=== PATIENT | male | born 1960 | race Caucasian/White ===

== ENCOUNTER 2020-05-10 11:39 | Inpatient (IN) | payer BC, SELFPAY ==
[~2020-05-10] VITALS: Ht 172.7 cm; Wt 91.9 kg
--- NOTE | 2020-05-10 12:13 | NUR ---
PT AMB TO ED FOR FURTHER EVALUATION OF COUGH/COLD/FEVER SYMPTOMS; PT STS HAS HAD SYMPTOMS FOR APPROX 10 DAYS WITH A NEGATIVE COVID TEST LAST WEEK PT PRESENTS WITH LABORED BREATHING AND COARSE LUNG SOUNDS THROUGH OUT; PT SEEN BY PROVIDER, ORDERS RECD; IV ACCESS TO L AC INITIATED, LABS DRAWN/SENT INCL LACTIC AND BLOOD CULTURES; o2 SAT 68% RA, PT INITATED ON BIPAP AT 10/6 FIO2 100%; ADD'L COVID TESTING DONE; EKG COMPLETE; CONT TO MONITOR
--- NOTE | 2020-05-10 12:18 | NUR ---
PT MOVED TO BED 1. PLACED ON MONITOR. ASSUMED CARE. RT AT BEDSIDE FOR BIPAP. PT APPEARS RELAXED AT THIS TIME. TOLERATING BIPAP. EKG DONE. LABS SENT. ABG IN PROGRESS.
[2020-05-10 12:23] LABS: BASOPHIL % 0.3 % (0-2); PLATELET COUNT 152 x10^3mcL (130-400)
[2020-05-10 12:30] LABS: RED CELL DISTRIBUTION WIDTH 14.8 % (11.5-14.5)
--- NOTE | 2020-05-10 12:48 | NUR ---
PT CONT TO TOLERATE BIPAP WELL, WAITING ON FURTHER DISPO
--- NOTE | 2020-05-10 13:25 | NUR ---
PT REMAINS W/HOB ELEVATED, CONT TO WAIT ON ICU BED; KULDIP BIPAP WELL
[2020-05-10 13:39] LABS: CALCIUM 8.6 mg/dL (8.5-10.1); CARBON DIOXIDE 22.6 mmol/L (21-32); CHLORIDE SERUM 99 mmol/L (98-107); CREATININE SERUM 1.2 mg/dL (0.7-1.3); GFR1 > 60 mL/min; GLUCOSE SERUM 322 mg/dL (74-106); POTASSIUM SERUM 3.8 mmol/L (3.5-5.1); SODIUM SERUM 137 mmol/L (136-145)
[2020-05-10 13:44] LABS: ALBUMIN 2.5 g/dL (3.4-5.0); ALKALINE PHOSPHATASE 116 U/L (46-116); ALT/SGPT 62 U/L (16-63); AST/SGOT 74 U/L (15-37); BILIRUBIN TOTAL 1.12 mg/dL (0.20-1.00); LACTIC DEHYDROGENASE (LDH) 441 U/L (100-190); TOTAL PROTEIN, SERUM 7.4 g/dL (6.4-8.2)
[2020-05-10 14:13] LABS: C REACTIVE PROTEIN 20.5 mg/dL (<=0.9)
--- NOTE | 2020-05-10 14:35 | NUR ---
PT INSTRUCTED TO PRONE AT THIS TIME PER RT; CONT TO BIPAP; KULDIP PRONING WELL, FAMILY UPDATED AND PHONE WAS BROUGHT IN FOR PT; QUESTIONES ANSWERED; FAMILY STRONGLY ENCOURAGED TO SELF QUARENTINE AND GET RETESTED; FAMILY ALSO WAS GIVEN ADDITIONAL EDUCATION REGARDING COURSE OF ILLNESS AND TREATMENTS
[2020-05-10 14:58] LABS: MAGNESIUM 2.1 mg/dL (1.8-2.4); PHOSPHOROUS 2.7 mg/dL (2.5-4.9)
[2020-05-10 15:01] LABS: CHOLESTEROL/HDL RATIO 6.3
--- NOTE | 2020-05-10 15:20 | NUR ---
PT NOW SUPINE, KULDIP WELL, BIPAP REMAINS IN USE; WAITING ON BED ASSIGNMENT; ADDITIONAL TESTING ORDERED
--- NOTE | 2020-05-10 17:16 | NUR ---
ULTRASOUND IN PROGRESS; PT RESTING WELL, CONT TO KULDIP BIPAP WELL;WAITING ON BED ASSIGNMENT
--- NOTE | 2020-05-10 17:38 | NUR ---
ULTRA SOUND COMPLETED, PT RESTING WELL, NO RESP DISTRESS, CONT TO KULDIP BIPAP
--- NOTE | 2020-05-10 20:11 | NUR ---
PT SIDE LYING, AND TOLERATING WELL. OXYGEN SATURATION 98%, RESPIRATIONS 33. PT BP AND HR WNL. PT ABLE TO SPEAK TO ME, AND WAS ABLE TO RPOVIDE URINE FOR CULTURE. PAGED RESIDENT, TO INQUIRE ABOUT MEDS SCHEULED FOR LATER THIS EVENING. WAITING FOR RETURN CALL.
[2020-05-10 20:24] LABS: UA SPECIFIC GRAVITY 1.025 (1.005-1.035); microscopic required? YES; urine erythrocyte NEGATIVE (NEGATIVE)
--- NOTE | 2020-05-10 20:34 | NUR ---
SPOKE WITH DR. RAY, PER MD, HOLD LANTUS THAT IS SCHEDULED BECUASE PT IS ON BIPAP AND NOT ABLE TO EAT. USE SLIDING SCALE FOR HUMILIN. DR. RAY ALSO REQUESTS TO ADD A SINGLE DOSE OF DECADRON, TONIGHT AT 2100.
[2020-05-10 20:39] LABS: AMPHETAMINE QUAL UR NONE DETECTED (See below)
--- NOTE | 2020-05-10 23:29 | NUR ---
PT IS LEFT SIDE LYING WITH EYES CLOSED. PT TOLERATING POSITION WELL. PT DENIES ANY PAIN AT THIS TIME. PT O2 SAT 94% RR 35. WILL CONTINUE TO MONITOR
--- NOTE | 2020-05-11 00:23 | NUR ---
PT TRANSFERRED TO ICU.
--- NOTE | 2020-05-11 00:40 | NUR ---
ADMITTED 58YR OLD MALE FROM ER VIA RNEY AWAKE ALERT AND ORIENTEDX4 W/ BIPAP AND TOLERATING WELL.COOPERATIVE FOLLOWS VERBAL COMMAND. RESPIRATION SLIGHTLY DYSPNIC AND TACHYPNIC.LUNGS DIMINISHED. NO ACUTE DISTRESS NOTED. MADE COMFORTABLE IN BED. WENT TO SLEEP AFTER.TEMP 99.
[2020-05-11 01:28] VITALS: BP 141/40
[2020-05-11 04:00] VITALS: BP 130/52
--- NOTE | 2020-05-11 05:00 | NUR ---
AWAKE AND NO URINE.ASKED PT TO VOID AND VOIDED 35OML DARK RUSS URINE.VSS.
--- NOTE | 2020-05-11 07:10 | NUR ---
ASSUMED CARE OF PATIENT, PT RESTING IN BED WITH EYES CLOSED EASILY AROUSABLE. ON BIPAP /, RESPIRATIONS EVEN AND UNLABORED. VS 80, 128/75 (92), 31, 93%. NO ACUTE DISTRESS NOTED, WILL CONTINUE TO MONITOR.
--- NOTE | 2020-05-11 07:20 | NUR ---
REPORT GIVEN TO ZAYNAB AND ALL QUESTIONS ANSWERED.
[2020-05-11 07:47] LABS: BASOPHIL % 0.2 % (0-2); PLATELET COUNT 156 x10^3mcL (130-400)
[2020-05-11 08:15] VITALS: BP 128/75
[2020-05-11 08:50] LABS: RED CELL DISTRIBUTION WIDTH 14.8 % (11.5-14.5)
[2020-05-11 09:12] LABS: CALCIUM 8.5 mg/dL (8.5-10.1); CREATININE SERUM 0.9 mg/dL (0.7-1.3); GFR1 > 60 mL/min; GLUCOSE SERUM 313 mg/dL (74-106); MAGNESIUM 2.1 mg/dL (1.8-2.4); PHOSPHOROUS 2.8 mg/dL (2.5-4.9)
[2020-05-11 09:44] LABS: CARBON DIOXIDE 22.7 mmol/L (21-32); CHLORIDE SERUM 105 mmol/L (98-107); POTASSIUM SERUM 4.5 mmol/L (3.5-5.1); SODIUM SERUM 141 mmol/L (136-145)
[2020-05-11 12:20] VITALS: BP 149/89
--- NOTE | 2020-05-11 14:54 | NUR ---
PATIENT ON OXIMIZER AT 12L AND PRONING AT THIS TIME. WILL MONITOR FOR PATIENT RESPONSE.
[2020-05-11 16:17] VITALS: BP 139/89
--- NOTE | 2020-05-11 18:15 | NUR ---
ONE UNIT CONVALESCENT PLASMA COMPLETE AT THIS TIME, NO TRANSFUSION REATION NOTED.
--- NOTE | 2020-05-11 19:04 | NUR ---
SBAR REPORT GIVEN TO ELPIDIO, ALL UPDATES PROVIDED.
[2020-05-11 19:30] VITALS: BP 133/67
--- NOTE | 2020-05-11 20:02 | NUR ---
PT GIVEN INCENTIVE SPIROMETER. EDUCATION PROVIDED, HANDOUT IN [place] PROVIDED. PT DEMONSTRATED APPROPRIATE USAGE OF DEVICE. PT NOTED TO HAVE DRY COUGH AFTER IS USE, NO SECRETIONS PRODUCED. INSTRUCTED PT TO REPEAT Q1-2H.
--- NOTE | 2020-05-11 20:02 | NUR ---
RECEIVED CALL FROM PT'S SON IJEOMA. UPDATED. WAS REQUESTED TO GIVEN PT'S PHONE FROM [employer] TO PT SO THAT FAMILY CAN TEXT HIM. PHONE GIVEN TO PT AND CHARGING.
--- NOTE | 2020-05-11 20:27 | NUR ---
PT SEEN BY DR WEBB. UPDATED. ORDERS RECEIVED TO DC AZITHROMYCIN, START REMDESIVIR AND PLASMA. SEE MAR FOR DETAILS.
--- NOTE | 2020-05-11 20:40 | NUR ---
FOUND PT ON 12 L/M OXYMIZER SPO2 92% LAYING ON HIS LEFT SIDE. EXPLAINED VERY THOROUGHLY IN AMHARIC THAT HE NEEDS TO PRONE MUCH POSSIBLE. ADVISED PT TO ALSO USE INCENTIVE SPIROMETER 10X AN HOUR WHEN HE IS SUPINE. PT STATED THAT HE UNDERSTOOD.
[2020-05-12] VITALS (13 sets, daily range): BP systolic 129–157; BP diastolic 68–89
[2020-05-12 06:09] LABS: PLATELET COUNT 166 x10^3mcL (130-400)
[2020-05-12 06:10] LABS: RED CELL DISTRIBUTION WIDTH 14.8 % (11.5-14.5)
[2020-05-12 06:11] LABS: BASOPHIL % 0 % (0-2)
[2020-05-12 06:39] LABS: C REACTIVE PROTEIN 7.6 mg/dL (<=0.9); CALCIUM 8.2 mg/dL (8.5-10.1); CARBON DIOXIDE 28.2 mmol/L (21-32); CHLORIDE SERUM 106 mmol/L (98-107); CREATININE SERUM 0.8 mg/dL (0.7-1.3); GFR1 > 60 mL/min; GLUCOSE SERUM 248 mg/dL (74-106); MAGNESIUM 2.1 mg/dL (1.8-2.4); PHOSPHOROUS 2.5 mg/dL (2.5-4.9); POTASSIUM SERUM 3.8 mmol/L (3.5-5.1); SODIUM SERUM 141 mmol/L (136-145)
--- NOTE | 2020-05-12 07:15 | NUR ---
ROUNDING WITH OUTGOING RN REPORT PT IN A DROPLET ISOLATION FOR POSTIVE COVID 19 PNA , IV OUT AND RT AC ANGIO # 18 WITH SLIGHT HEMATOMA ON ABOVE AND ASPIRATED BLOOD RETURN BUT THEN STARTED ANOTHER IV LIFELINE VIA LEFT HAND ANGIO # 20 AND IVF NS 0.9 % AT TKO RATE , PT FALL BACK TO SLEEP AFTER TEAC PT ON HOW TO USE INCENTIVE SPIROMETER AND PRONING POSITION .
[2020-05-12 09:37] LABS: BILIRUBIN DIRECT 0.43 mg/dL (0.0-0.2); BILIRUBIN TOTAL 0.9 mg/dL (0.20-1.00); TOTAL PROTEIN, SERUM 6.4 g/dL (6.4-8.2)
[2020-05-12 09:40] LABS: ALBUMIN 2.3 g/dL (3.4-5.0)
--- NOTE | 2020-05-12 11:00 | NUR ---
SPOKE TO PT SON ROGE AND UPDATED ABOUT PT CURRENT STATUS AND POSSIBLE DOWNGRADED TO ANOTHER COVID PENDING BED AVAILABLE .
--- NOTE | 2020-05-12 13:28 | NUR ---
FIRST LOADING DOSE OF REMDESIVIR ADMINISTERED AND EXPLAIN TO PT ABOUT PURPOSE AND EFFECT , PT ACKNOWLEDGED AND VERBALIZED UNDERSTANDING , MED INFO GIVEN TO PT .
--- NOTE | 2020-05-12 17:46 | NUR ---
RECEIVED SBAR REPORT FROM SIRISHA WHITAKER FROM ICU.
--- NOTE | 2020-05-12 17:46 | NUR ---
SBAR REPORTED TO SHERMAN OHUSE AND ACCEPTED , PT EATING DINNER AND TAKEN WELL , S/O AWARE OF PT BEING DOWNGRADE TO [facility] UNIT ROOM ASSIGN 221-B VIA WHEELCHAIR IN STABLE CONDITION .
--- NOTE | 2020-05-12 18:36 | NUR ---
1800: PATIENT ARRIVED TO ROOM 221B. PATIENT IS AAOX4, ABLE TO MAKE NEEDS KNOW, PATIENT IS ABLE TO SPEAK AND UNDERSTAND TAJIK. BUT PREFER TO SPEAK IN [place]. 02 SAT 88% ON 12L NC, SOB ON EXERTION NOTED. INCREASE 02 TO 15L OXYMIZER, O2 SAT 91%. BILAT UPPER LOBE COURSE RHONCHI AND DIMINISHED BBL. ENCOURAGE PATIENT TO USE IS AND PRONE. PER PATIENT, HE IS AWARE AND WILL DO IT LATER. BODY ASSESSMENT PERFOREMD, SKIN INTACT AND PATEN, DISCOLORATION TO BUE/BLE. DENIES DISTRESS OR PAIN AT THIS TIME. EXPLAINED PLAN OF CARE AND PATIENT VERNBALIZED UNDERSTANDING. ORIENT TO THE ROOM AND CALL LIGHT. NONSKID SOCKS ON, BED IN LOW AND LOCK POSITION. WILL CONT TO MONITOR. 1830: PATIENT IS RESTING IN BED QUEITLY. NO ADDITIONAL DISTRESS NOTED. 02 SAT 91% ON 15L OXYMIZER. WILL CONT TO MONITOR.
--- NOTE | 2020-05-12 19:50 | NUR ---
PT RECIEVED IN BED AWAKE, IN A PRONE POSITION. A/OX4 ABLE TO MAKE NEEDS KNWON, ABLE TO FOLLOW COMMANDS, SPEECH IS CLR. NO FERMIN C/O OR DIZZINESS. PT RESP IS SLIGHTLY LABORED, ON OXYMIZER 15L 02 SAT 93%, DRY COUGH OBSERVED. RADIAL AND PEDAL PULSES PRESENT, NO EDEMA NOTED. ON TELE # 16, NO C/O CHEST PAIN AT THIS TIME. ABD ROUND AND SOFT, ACTIVE BS PRESENT X4, NO C/O NVD, VOIDS FREELY WITH NO REPORTED DISCOMFORT. SKIN IS WARM, DRY AND INTACT IV SITE TO THE LFA PATENT AND FLUSHING WELL, IV SITE TO THE LH PATENT AND FLUSHING WELL. BED TO LOWEST POSITION CALL LIGHT WITHIN REACH, WILL CONT TO MONITOR FOR CHANGES IN CONDIITON.
--- NOTE | 2020-05-13 00:59 | NUR ---
PT IN BED RESTING COMFORTABLY. ON 12L OXYMIZER NOW, WITH SPO2 BETWEEN 87-93%. PT HAD C/O STUFFY NOSE, DR. HARDING MADE AWARE AND ORDERED NS NASAL SPRAY. NS NASAL SPRAY UNAVAILABLE AND MADE AWARE. WILL CONT TO MONITOR PT.
--- NOTE | 2020-05-13 04:26 | NUR ---
PT MADE AWARE REGARDING NEW ORDER FOR FLONASE, HOWEVER MEDICATION IS NOT AVAILABLE AT THIS TIME AND WILL BE COMING FROM PHARMACY IN THE MORNING. PT IS OKAY TO WAIT, REQUESTING FOR MEDICATION FOR COUGH, LEFT A MESSSAGE TO DR. HARDING.
[2020-05-13 06:20] VITALS: BP 150/85
[2020-05-13 07:20] LABS: BASOPHIL % 0.3 % (0-2); PLATELET COUNT 131 x10^3mcL (130-400); RED CELL DISTRIBUTION WIDTH 14.4 % (11.5-14.5)
--- NOTE | 2020-05-13 07:38 | NUR ---
PT IN BED RESTING, OBSERVED TO HAVE SOB.PT HAD EPISODE OF DESATURATION, SUPPLEMENTAL 02 AT 15L VIA NON REBREATHER MASK PROVIDED, ENCOURAGED PT TO PRONE, SPO2 AT THIS TIME IS 95%. NEEDS ATTENDED AND MET, FREQUENT VISUAL MONITORING RENDERED. ENDORSED CARE TO NEXT SHIFT NURSE.
--- NOTE | 2020-05-13 07:45 | NUR ---
0745AM: PATIENT IS RESTING IN BED QUEITLY, ASLEEP AT THIS TIME. NO ADDITIONAL DF DISTRESS NOTED. CALL LIGHT WITHIN REACH. CURRENTLY ON 15L OXYMIZER AND 15 NRB 02 SAT 93%. WILL CONT TO MONITOR.
[2020-05-13 07:59] LABS: ALKALINE PHOSPHATASE 97 U/L (46-116); ALT/SGPT 72 U/L (16-63); AST/SGOT 45 U/L (15-37); BILIRUBIN DIRECT 0.35 mg/dL (0.0-0.2); BILIRUBIN TOTAL 0.9 mg/dL (0.20-1.00); CALCIUM 8.1 mg/dL (8.5-10.1); CARBON DIOXIDE 29.3 mmol/L (21-32); CHLORIDE SERUM 107 mmol/L (98-107); CREATININE SERUM 0.8 mg/dL (0.7-1.3); GFR1 > 60 mL/min; GLUCOSE SERUM 179 mg/dL (74-106); MAGNESIUM 1.9 mg/dL (1.8-2.4); POTASSIUM SERUM 3.6 mmol/L (3.5-5.1); SODIUM SERUM 143 mmol/L (136-145); TOTAL PROTEIN, SERUM 6.4 g/dL (6.4-8.2)
--- NOTE | 2020-05-13 08:00 | NUR ---
0800AM: PLAN OF CARE EXPLAINED AND PATIENT VERBALIZED UNDERSTANDING. ENCOURAGE TO USE IS AND DO PRONE POSITIONING. WILL CONT TO MONITOR.
[2020-05-13 08:01] LABS: ALBUMIN 2.3 g/dL (3.4-5.0)
[2020-05-13 08:23] VITALS: BP 159/94
[2020-05-13 08:39] VITALS: Ht 172.7 cm; Wt 91.9 kg
--- NOTE | 2020-05-13 08:56 | NUR ---
MOVE PATIENT FROM ROOM 221B TO 224A DUE TO NEEDING A NEGATIVE PRESSURE/HEPA FILTER ROOM. CURRENTLY ON OXYMIZER 15L W/ ADDITIONAL NRB 15L 02 SAT 92%. MADE AWARE TO RT WHO IS CURRENTLY DOING ROUNDS IN THE UNIT. PER RT, SHE WILL GET THE HIGH FLOW MACHINE SOON SHE CAN. PATIENT IS STABLE AT THIS TIME. RESTING IN BED QUIETLY AND WANTS TO SLEEP. NO ADDITIONAL DISTRESS NOTED. WILL CONT TO MONITOR.
--- NOTE | 2020-05-13 09:50 | NUR ---
0950AM: PATIENT IS NOW ON HIGH FLOW 35L 02 SAT 92%. SOB ON EXERTION, DESAT TO 70'S%. RESTING IN BED AT THIS TIME. PATIENT REFUSED TO EAT, HE STATED THAT HE DIDNT SLEEP LAST NIGHT BECAUSE OF DYSPNEA. WILL LET HIM REST. WILL CONT TO MONITOR.
--- NOTE | 2020-05-13 09:55 | NUR ---
PLACED ON HFNC 35L 100%. PT TOLERATING WELL. WILL CONT.TO MONITOR
[2020-05-13 12:25] VITALS: BP 146/85
--- NOTE | 2020-05-13 12:52 | NUR ---
NOTED BLOOD ON TISSUE WHEN PATIENT BLOW HIS NOSE. WILL LET RT KNOW IF PATIENT CAN HAVE (SALINE) MIST WHILE ON HIGH FLOW DURING HER ROUNDS. NO RUNNY NOSE NOTED.
[2020-05-13] MEDS ORDERED: AMLODIPINE BES1 CAP PO (13:39)
--- NOTE | 2020-05-13 14:30 | NUR ---
RT AT THE STATION AND MADE AWARE OF NARES BEING DRY FROM 0XYGEN. PER RT, THERE ALREADY A BAG OF SALINE TO MIST HIS NOSTRIL. DRY NARES PROBABLY DUE TO OVERNIGHT USING OXYMIZER AND NRB AT 15L W/O MIST. AT THIS TIME, PATIENT HAS NOT NOTED ANY BLOOD WHEN BLOWING HIS NOSE. HOWEVER, NOTED PATIENT PICKING HIS NOSTRIL ALOT. WILL CONT TO MONITOR.
[2020-05-13 16:26] VITALS: BP 140/73
--- NOTE | 2020-05-13 18:30 | NUR ---
NOTED PATIENT USING IS X10 (500ML) AND DOING PRONE POSITIONING THROUGHOUT THE SHIFT. PATIENT STATES FEELING MUCH BETTER. SOB ONLY ON EXERTION AND DESAT. INCREASE HR TO 118-123 ONLY DURING ACTIVITY. RESTING IN BED AT THIS TIME. NO ADDITIONAL DISTRESS NOTED. WILL CONT TO MONITOR.
--- NOTE | 2020-05-13 19:50 | NUR ---
RECEIVED REPORT FROM DAY SHIFT RN. PT RESTING IN BED, WATCHING TV. AA&O X4. NO C/O SOB ON HIGH FLOW 35L, FIO2 100%. NO C/O CHEST PAIN OR PRERSSURE. NO DISTRESS NOTED. DENIES N/V/ABD PAIN. VOIDS USING THE URINAL. COMMODE AT BEDSIDE. IV SALINE LOCKED TO LFA AND LH, PATENT AND INTACT. SAFETY MEASURES IN PLACE. BED IN LOWEST POSITION. SIDE RAILS UP X2. DEMONSTRATED HOW TO CALL FOR ASSISTANCE. CALL LIGHT WITHIN REACH.
[2020-05-13 21:44] VITALS: BP 144/93
--- NOTE | 2020-05-14 02:00 | NUR ---
PT RESTING WITH EYES CLOSED. NO FACIAL GRIMACING. NO RESPIRATORY DISTRESS NOTED. ON HIGH FLOW 35L, FIO2 100%. CALL LIGHT WITHIN REACH.
[2020-05-14 05:53] VITALS: BP 144/78
--- NOTE | 2020-05-14 06:24 | NUR ---
PT RESTED WELL DURING SHIFT. NO C/O CHEST PAIN. PT REMAINS ON HIGH FLOW 35L/MIN, FIO2 100%. O2 SAT 95%-97%. NO C/O SOB. NO DISTRESS NOTED. IV TO LFA AND LEFT HAND, SALINE LOCKED. PT DESATS TO 80'S ON EXERTION WHEN USING THE BEDSIDE COMMODE. O2 SAT GOES BACK UP TO >92% WHEN HE IS BACK TO BED. SAFETY MEASURES MAINTAINED. ALL NEEDS ATTENDED TO. CALL LIGHT WITHIN REACH. WILL ENDORSE CONTINUITY OF CARE TO ONCOMING RN.
[2020-05-14 07:15] LABS: ALKALINE PHOSPHATASE 93 U/L (46-116); ALT/SGPT 56 U/L (16-63); AST/SGOT 33 U/L (15-37); BILIRUBIN DIRECT 0.33 mg/dL (0.0-0.2); CARBON DIOXIDE 30.3 mmol/L (21-32); CHLORIDE SERUM 104 mmol/L (98-107); CREATININE SERUM 0.8 mg/dL (0.7-1.3); GFR1 > 60 mL/min; GLUCOSE SERUM 233 mg/dL (74-106); MAGNESIUM 2.2 mg/dL (1.8-2.4); PHOSPHOROUS 3.5 mg/dL (2.5-4.9); POTASSIUM SERUM 4.1 mmol/L (3.5-5.1); SODIUM SERUM 139 mmol/L (136-145)
[2020-05-14 07:19] LABS: ALBUMIN 2.2 g/dL (3.4-5.0); TOTAL PROTEIN, SERUM 6.1 g/dL (6.4-8.2)
[2020-05-14 08:01] LABS: RED CELL DISTRIBUTION WIDTH 14.5 % (11.5-14.5)
[2020-05-14 08:12] VITALS: BP 131/69
--- NOTE | 2020-05-14 08:55 | NUR ---
ATTEMPTED TO TITRATE HFNC BUT WAS UNSUCCESSFUL DUE TO DESATURATION. PT CURRENTLY ON HFNC 35L 100%. PT TOLERATING WELL. NO ACUTE RESP DISTRESS NOTED. WILL CONT.TO MONITOR
[2020-05-14 11:15] LABS: BAND NEUTROPHIL 0 % (0-10); SEGMENTED NEUTROPHILS 85 % (37-75)
[2020-05-14 11:16] LABS: MONOCYTE 6 % (0-7); PLATELET MORPHOLOGY GIANT PLATELET SEEN; rbc morphology (normal/abnorm) NORMAL (NORMAL)
[2020-05-14 11:17] LABS: PLATELET COUNT 100 x10^3mcL (130-400)
[2020-05-14 11:54] VITALS: BP 149/71
--- NOTE | 2020-05-14 13:40 | NUR ---
TITRATED HFNC TO 33L 100%. PT LAYING ON LEFT SIDE. NO ACUTE RESP DISTRESS NOTED. WILL CONT.TO MONITOR
[2020-05-14 15:53] VITALS: BP 138/72
--- NOTE | 2020-05-14 18:20 | NUR ---
0725AM: PATIENT IS RESTING IN BED QUEITLY. NO ADDITIONAL DISTRESS NOTED. CALL LIG WITHIN REACH. CURRENTLY ON 35L HIGH FLOW 02 SAT 92%. WILL CONT TO MONITOR. 0800AM: EXPLAINED PLAN OF CARE AND PATEINT VERBALIZED UNDERSTANDING. SOB ONLY ON EXERTION AND DESAT/TACHY DURING PHYSICAL ACTIVITY. WELL INCREASE FATIGABILITY DOING PHYSICAL ACTIVITY. ENCOURAGE PATIENT TO USE IS AND PERFORMED PRONE POSITIONING. NOTED PATIENT USING IS X10 AT 500ML. WILL CONT TO MONITOR. 0900AM: PATIENT IS ASLEEP DOING PRONE POSITIONING. WILL CONT TO MONITOR. 1800: PATIENT IS SITTING AT THE SIDE OF THE BED EATING HIS DINNER AND TALKING TO HIS FAMILY. SLIGHT FATIGE WHEN TALKING. HOWEVER, VERY HAPPY WHEN TALKING TO HIS FAMILY. DENIES DISTRESS AT THIS TIME. PATIENT HAS BEEN DOING PRONE POSITIONING WHILE ASLEEP AND USING IS WHEN AWAKE WILL CONT TO MONITOR.
--- NOTE | 2020-05-14 19:15 | NUR ---
RECEIVED PATIENT FROM DAY SHIFT NURSE. PATIENT IN NO ACUTE DISTRESS. AWAKE, ALERT AND ORIENTED X4. DENIES PAIN. TELE #[address], DENIES CHEST PAIN/CHEST PRESSURE. SPO2 92%, DENIES SOB AT THIS TIME. EU BREATHING ON HIGH FLOW 35L. PATIENT EDUCATED ON BREATHING MEASURES, LAY PRONE TOLERATED. PATIENT COMPLIANT, FOUND LAYING PRONE. COMMODE AND URINAL AT BEDSIDE. IVS WNL. BED IN LOWEST POSITION. CALL LIGHT WITHIN REACH. SIDE RAILS UPX2.
[2020-05-14 20:19] VITALS: BP 156/81
--- NOTE | 2020-05-14 20:55 | NUR ---
PT MEDICATED W/LANTUS PER MD ORDERS. PATIENT EDUCATED ON LOW BS SYPMTOMS AND INSTRUCTED TO CALL NURSE IF EXPERIENCING LOW BS SYMPTOMS. PATIENT ALSO PROVIDED W/SNACKS. CALL LIGHT WITHIN REACH.
--- NOTE | 2020-05-15 01:25 | NUR ---
PT SLEEPING, NO ACUTE DISTRESS. TELE #[address] PATIENT LAYING PRONE. EU BREATHING NOTED ON HIGH FLOW 33L 100% FIO2. URINAL AND COMMODE AT BEDSIDE. URINAL EMPTIED, DARK YELLOW URINE NOTED.
[2020-05-15 05:39] VITALS: BP 133/72
--- NOTE | 2020-05-15 06:27 | NUR ---
REMAINS IN NO ACUTE DISTRESS, SLEEPING AT THIS TIME. EU BREATHING NOTED ON 33L 100% FIO2. COMMODE, URINAL AT BEDSIDE. TOLERATED MEDICATIONS WELL. WILL CONTINUE TO MONITOR. WILL ENDORSE CARE TO ONCOMING SHIFT NURSE.
[2020-05-15 07:23] LABS: BASOPHIL % 0 % (0-2); RED CELL DISTRIBUTION WIDTH 14.6 % (11.5-14.5)
[2020-05-15 07:48] LABS: ALKALINE PHOSPHATASE 82 U/L (46-116); ALT/SGPT 51 U/L (16-63); AST/SGOT 25 U/L (15-37); BILIRUBIN DIRECT 0.27 mg/dL (0.0-0.2); BILIRUBIN TOTAL 0.8 mg/dL (0.20-1.00); C REACTIVE PROTEIN 3.2 mg/dL (<=0.9); CALCIUM 8.1 mg/dL (8.5-10.1); CARBON DIOXIDE 29.6 mmol/L (21-32); CHLORIDE SERUM 103 mmol/L (98-107); CREATININE SERUM 0.8 mg/dL (0.7-1.3); GFR1 > 60 mL/min; GLUCOSE SERUM 251 mg/dL (74-106); POTASSIUM SERUM 3.9 mmol/L (3.5-5.1); SODIUM SERUM 137 mmol/L (136-145)
[2020-05-15 07:51] LABS: ALBUMIN 2.1 g/dL (3.4-5.0); TOTAL PROTEIN, SERUM 5.7 g/dL (6.4-8.2)
--- NOTE | 2020-05-15 07:53 | NUR ---
REPORT TAKEN FROM RAND CEMENTER NURSE, PATIENT FOUND TO BE RESTING BUT WOKE FOR MORNING ASSESSMENT. REPORTED MILD SOB, AND INTERMITENT COUGH. ON 33L HIGH FLOW O2 WITH FIO2 OF 100 PERCENT. IV TO LEFT FOREARM PATENT.
[2020-05-15 07:54] VITALS: BP 139/78
[2020-05-15 11:33] VITALS: BP 136/69
[2020-05-15 13:06] LABS: PLATELET COUNT 125 x10^3mcL (130-400)
--- NOTE | 2020-05-15 15:42 | NUR ---
1. Continue with CCHO as tolerate 2. Recommend Glucerna QD to meet high kcal demand. It will provide additional 220kcal and 10g protein.
--- NOTE | 2020-05-15 15:42 | NUR ---
Initial Nutrition Assessment: 224B ALEC ROSADO 59M HR Dx: fever, cough x 10days, COVID+, PNA, Hypoxia PMHx: HTN, DM PSHx: none noted Labs: (05/15) WBC 11.8H, BUN 24H, BG 251H, POC BG 258H, Calcium 8.1L, albumin 2.1L, (05/10) A1C 8.8H, Ferritin 327.2H, CRP 3.2H, Triglycerides 165H, HDL 22L Meds: Norvasc, Lovenox, Colace, Humulin, Solu-medrol, Lantus, Remdesevir Diet: [facility] PO intake since admission: (05/11) B: 0%, L: 10%, D: 0%, (05/12) B: 20%, L: 20%, D: 0%, (05/14) B: 70%, L: 100%, D: 80% (05/15) B: 85%, L: 100% *pt's PO intake had improved since being transferred out of ICU Ht: 172.72cm/68in Wt: 91.881kg/202lbs BMI: 30.8kg/m2 Bed scale: not accessible IBW: 70kg/154lbs %IBW: 131.26% ABW: 75kg UBW: unknown Age: 59 Food Allergies: unknown Edema: none noted Last BM: 05/15 per BM group Skin: Ecchymosis to RUEA and discoloration to B/L lower leg Raymon: 20 Per H and P (05/10), A 59 yo male w/ PMHx of HTN presents to the hospital with complaints of worsening shortness of breath, fever, productive cough, and mild nongraduating left chest pain that began 1 week ago. Patient states that his breathing worsened yesterday though he denies exacerbating events. Patient does not know if he has been around any sick contacts and did not have any URI recently. He does not have a history of cardiac issues or asthma. Patient denies nausea, vomiting, abdominal pain, changes in bowel or bladder movement, pleurisy, edema, or hemoptysis. Patient is currently on a bipap and resting in a prone position. Pt was admitted with dx: Acute hypoxemia, lactic acidosis, DMOOC, severe malnutrition, DVT RD Note (05/15/2020) Per progress note (05/15) pt was transferred from ICU to the floor and noted to be on 15L oxymizer, received plasma therapy and Remdesevir. Pt was in isolation and was not able to respond to RD's call. Per pt's primary RN, pt did not exhibit any signs of chewing/swallowing difficulty or GI distress. Pt's PO intake had improved since being transferred out of ICU. Problem with: N/V/D/C: none per RN Problems with: Chewing: Swallowing: none per RN Current appetite: Improved per RN and flowsheet Recent wt change: unknown %wt change: unknown Height: unknown Vitamin/Supplement use: unknown Special diet at home: unknown Physical activity: unknown Nutrition education given (specify specific nutrition education and handout given): Written education "Carbohydrate Counting for People with Diabetes" and "Diabetes Label Reading Tips" were provided to pt via pt's RN. Not able to provide education verbally at this time. Food-drug interactions? Education given? n/a Estimated Nutritional Needs Based on adjusted body weight (75kg) Energy: 7666-0756 kcal/day (30-35 kcal/kg for viral infection) Protein: 90-112 g/day (1.2-1.5 g/kg for viral infection) Fluid: 6416-4453 mL/day (1 mL/kcal) Nutrition Diagnosis: 1. Increased energy and protein needs r/t viral infection a/e/b pt was COVID +. 2. Impaired nutrition utilization r/t endocrine dysfunction a/e/b BG 251H on 05/15 and A1C 8.8 on 05/10. Intervention 1. Continue with CCHO as tolerate 2. Recommend Glucerna QD to meet high kcal demand. It will provide additional 220kcal and 10g protein. Monitor/Evaluate Goal: PO intake at least 75% of estimated needs Monitor: PO intake, Labs, GI function, ONS intake F/U in 3-5 days as moderate risk 05/18-
[2020-05-15 16:23] VITALS: BP 134/65
--- NOTE | 2020-05-15 19:10 | NUR ---
RECEIVED PATIENT FROM DAY SHIFT NURSE, NO ACUTE DISTRESS. AWAKE, ALERT AND ORIENTED X4. MILD DRY COUGH NOTED, REPORTS MILD SOB. FOUND LAYING PRONE. ENCOURAGED USE OF IS, PATIENT VERBALIZES HE USES IT EVERY HOUR. TELE #[address] EU BREATHING NOTED ON HIGH FLOW 33L W/ 100% FIO2. COMMODE AND URINAL AT BEDSIDE. IVS WNL. BE DIN LOWEST POISITION. CALL LIGHT WITHIN REACH. SIDE RAILS UP X2.
--- NOTE | 2020-05-15 19:16 | NUR ---
REPORT GIVEN TO SURVEY TECHNICIAN NURSE CARE ENDORSED
[2020-05-15 19:50] VITALS: BP 127/73
--- NOTE | 2020-05-15 21:39 | NUR ---
PT MEDICATED W/ HUMULIN REGULAR INSULIN AND LANTUS PER AUG BS RECORDED IN CHART. EDUCATED ON HYPOGLYCEMIA SYMPTOMS AN DINSTRUCTED TO USE CALL LIGHT NEEDED. PROVIDED WITH SNACKS. CALL LIGHT WITHIN REACH.
--- NOTE | 2020-05-16 01:12 | NUR ---
PT REMAINS IN NO ACUTE DISTRESS. EASILY AROUSABLE. WOKE UP FOR MED PER AUG. DENIES S/S OF HYPOGLYCEMIA. EU BREATHING NOTED ON HIGH FLOW 33L FIO2 90%. DENIES SOB.
[2020-05-16 05:18] VITALS: BP 149/88
[2020-05-16 06:50] LABS: RED CELL DISTRIBUTION WIDTH 14.4 % (11.5-14.5)
[2020-05-16 07:13] LABS: C REACTIVE PROTEIN 1.9 mg/dL (<=0.9); CARBON DIOXIDE 28.1 mmol/L (21-32); CHLORIDE SERUM 103 mmol/L (98-107); CREATININE SERUM 0.7 mg/dL (0.7-1.3); GFR1 > 60 mL/min; GLUCOSE SERUM 203 mg/dL (74-106); POTASSIUM SERUM 4.1 mmol/L (3.5-5.1); SODIUM SERUM 136 mmol/L (136-145)
[2020-05-16 07:27] LABS: BILIRUBIN DIRECT 0.22 mg/dL (0.0-0.2); BILIRUBIN TOTAL 0.71 mg/dL (0.20-1.00)
[2020-05-16 07:28] LABS: ALBUMIN 2.2 g/dL (3.4-5.0); TOTAL PROTEIN, SERUM 5.5 g/dL (6.4-8.2)
[2020-05-16 07:31] LABS: BASOPHIL % 0 % (0-2)
[2020-05-16 07:33] LABS: PLATELET COUNT 148 x10^3mcL (130-400)
--- NOTE | 2020-05-16 07:34 | NUR ---
NO CHNAGES AT THIS TIME. REMAINS IN NO ACUTE DISTRESS. WILL CONTINUE TO MONITOR.
[2020-05-16 09:17] VITALS: BP 124/78
--- NOTE | 2020-05-16 10:44 | NUR ---
REMAINS IN NO ACUTE DISTRESS. EU BREATHING NOTED ON HIGH FLOW 25 L AND FIO2 80%. DENIES SOV AT THIS TIME. WILL ENDORSE CARE TO NATTY FOR CONTINUITY OF CARE.
--- NOTE | 2020-05-16 11:00 | NUR ---
RECEIVED REPORT FROM NURSE. PATIENT IS RESTING IN BED, AAO TIMES 4. DENIES PAIN AND DISCOMFORT. DENIES CP/CARDIAC DISCOMFORT. RESPIRATIONS EVEN AND UL ON 25L HIGH-FLOW 25L AND FIO2 80%. ENCOURAGED PRONE POSITION AND USE OF IS. BED IN LOWEST POSITION, CALL LIGHT IN REACH, SAFETY MEASURES IN PLACE. WILL CONT TO MONITOR.
[2020-05-16 13:33] VITALS: BP 144/77
--- NOTE | 2020-05-16 15:23 | NUR ---
PATIENT RESTING IN BED IN PRONE POSITION. DENIES PAIN AND DISCOMFORT. RESPIRATIONS EVEN AND UL ON 25L HIGH-FLOW AND 80% FIO2. BED IN LOWEST POSITION, CALL LIGHT IN REACH, SAFETY MEASURES IN PLACE.
[2020-05-16 18:57] VITALS: BP 144/83
--- NOTE | 2020-05-16 19:29 | NUR ---
PATIENT RESTING IN BED, NO ACUTE CHANGES NOTED THROUGHOUT SHIFT. SAFETY MEASURES IN PLACE. REPORT GIVEN TO CASHIER HOST/HOSTESS RN.
--- NOTE | 2020-05-16 19:35 | NUR ---
RECEIVED PT FROM DAY SHIFT RN. PT AA&O X 4.PT ON TELE MONITORING WITH NSR. PT DENIES CHEST PAIN OR DISCOMFORT AT THIS TIME. PULSES EQUAL AND REGULAR AND NO EDEMA NOTED AT THIS TIME. PT ON HF 25L/MIN O2 COY652%,LUNG SOUNS CRACKLES AT BILATERAL BASE. PT DENIES SOB AT THIS TIME. PT DENIES ABDOMEN PAIN OR DISCORCOMFORT. LAST BM 05/16/20. PT APPEARS WEAK AND CURRENTLY ON BEDREST. IV SITE INTACT AND NO REDNESS OR SWELLING NOTED. INSTRUCTED TO PT TO CALL FOR ANY ASSISTANCE. CALL LIGHT AND PHONE IN REACH. BED IN LOWER POSITION. WILL CONTINUE TO MONITOR PT.
[2020-05-16 20:45] VITALS: BP 104/61
--- NOTE | 2020-05-17 00:35 | NUR ---
IN TO CHECK ON PT. PT RESTING IN BED. NO DISTRESS NOTED AT THIS TIME. PT ON HF O2 25L,FIO2 80%. 97%.
[2020-05-17 05:56] VITALS: BP 138/72
--- NOTE | 2020-05-17 06:29 | NUR ---
PT RESTED WELL DURING SHIFT.PT ON HF 25L FIO2 80%. DENIES PAIN OR DISCOMFORT AT THIS TIME. NO ACUTE CHANGES. CALL LIGHT WITHIN REACH. WILL EDORSE CARE TO ONCOMING RN.
--- NOTE | 2020-05-17 06:49 | NUR ---
NURSING CO-SIGN THE DOCUMENTATION ENTERED BY THE IP HAS BEEN REVIEWED. REVIEWED/CO-SIGNED BY: Jennifer Durán DOCUMENTATION DONE BY: Anna Gerardo
[2020-05-17 06:53] LABS: PLATELET COUNT 144 x10^3mcL (130-400); RED CELL DISTRIBUTION WIDTH 14.5 % (11.5-14.5)
--- NOTE | 2020-05-17 07:30 | NUR ---
RECEIVED REPORT FROM NIGHT NURSE. PATIENT RESTING IN BED, AAO TIMES 4. DENIES PAIN AND DISCOMFORT. TELE #6, NSR. DENIES CP/CARDIAC DISCOMFORT. LUNG SOUNDS DIMINISHED AT BASES BILAT. RESPIRATIONS EVEN AND UL ON HIGH-FLOW 35L AND FIO2 80%. IV SITE TO LFA, INTACT AND PATENT, NO SWELLING OR ERYTHEMA AT SITE. ENCOURAGED PRONE POSITIONING AND USE OF IS. BED IN LOWEST POSITION, CALL LIGHT IN REACH, SAFETY MEASURES IN PLACE. WILL CONT TO MONITOR.
[2020-05-17 07:37] LABS: BASOPHIL % 0 % (0-2)
[2020-05-17 08:13] LABS: CALCIUM 7.6 mg/dL (8.5-10.1); CHLORIDE SERUM 101 mmol/L (98-107); CREATININE SERUM 0.6 mg/dL (0.7-1.3); GFR1 > 60 mL/min; GLUCOSE SERUM 303 mg/dL (74-106); POTASSIUM SERUM 4.2 mmol/L (3.5-5.1); SODIUM SERUM 134 mmol/L (136-145)
[2020-05-17 08:30] VITALS: BP 143/82
--- NOTE | 2020-05-17 12:00 | NUR ---
PATIENT RESTING IN BED IN PRONE POSITION. DENIES PAIN AND DISCOMFORT. RESPIRATIONS EVEN AND UL ON HIGH-FLOW 25L AND FIO2 80%. BED IN LOW POSITION, CALL LIGHT IN REACH, SAFETY MEASURES IN PLACE. ALL NEEDS ATTENDED TO.
[2020-05-17 13:22] VITALS: BP 141/80
--- NOTE | 2020-05-17 14:30 | NUR ---
PATIENT RESTING IN BED, RESPIRATIONS EVEN AND UL ON HIGH-FLOW 25L AND FIO2 80%. DENIES PAIN AND DISCOMFORT. ENCOURAGED PRONE POSITIONING AND USE OF IS. BED IN LOWEST POSITION, CALL LIGHT IN REACH, SAFETY MEASURES IN PLACE. ALL NEEDS ATTENDED TO.
[2020-05-17 17:01] VITALS: BP 149/86
--- NOTE | 2020-05-17 18:41 | NUR ---
PATIENT RESTING IN BED. DENIES PAIN AND DISCOMFORT. RESPIRATIONS EVEN AND UL ON 25L HIGH-FLOW AND FIO2 80%. NO ACUTE CHANGES NOTED THROUGHOUT SHIFT. BED IN LOWEST POSITION, CALL LIGHT IN REACH, SAFETY MEASURES IN PLACE. WILL CONT TO MONITOR AND ENDORSE TO LINEN SORTER NURSE.
--- NOTE | 2020-05-17 20:12 | NUR ---
PT RECIEVED FROM DAY NURSE. PT RESTING IN BED AT THIS TIME. DENIES PAIN OR DISCOMFORT. PT BREATHING E/U ON 25L FIO2 80%. SPO2 94% AT THIS TIME. ABD SOFT AND FLAT, DENIES PAIN TO PALPATION. PT AMBULATORY AT BASELINE. ABLE TO TURN AND REPOSTION SELF. IV TO LFA, CDI. BED AT LOWEST POSITION. CALL LIGHT WITHIN REACH. WILL CONTINUE TO MONITOR.
[2020-05-17 20:55] VITALS: BP 145/69
--- NOTE | 2020-05-18 | NUR ---
PT RESTING IN BED AT THIS TIME. DENIES PAIN OR DISCOMFORT. PT BREATHING E/U ON 25L HF, FIO2 80%. NO S/S OF ACUTE DISTRESS AT THIS TIME. WILL CONTINUE TO MONITOR.
[2020-05-18 05:51] VITALS: BP 112/62
--- NOTE | 2020-05-18 06:44 | NUR ---
PT RESTING IN BED AT THIS TIME. DENIES PAIN OR DISCOMFORT. PT BREATHING E/U ON 25L HF 80% FIO2 DENIES SOB AT THIS TIME. ALL NEEDS AND CONCERNS ADDRESSED THIS SHIFT. WILL ENDORSE TO DAY NURSE.
--- NOTE | 2020-05-18 07:30 | NUR ---
RECEIVED REPORT FROM NIGHT RN. PATIENT RESTING IN BED, AAO TIMES 4. DENIES PAIN. RESPIRATIONS EVEN AND UL ON 20L HIGH-FLOW AND FIO2 80%. TELE #6, NSR. DENIES CP/CARDIAC DISCOMFORT. ENCOURAGED PRONE POSITIONING AND USE OF IS. BED IN LOWEST POSITION, CALL LIGHT IN REACH, SAFETY MEASURES IN PLACE. WILL CONT TO MONITOR.
[2020-05-18 08:04] LABS: CALCIUM 8.2 mg/dL (8.5-10.1); CARBON DIOXIDE 28.9 mmol/L (21-32); CHLORIDE SERUM 101 mmol/L (98-107); CREATININE SERUM 0.6 mg/dL (0.7-1.3); GFR1 > 60 mL/min; GLUCOSE SERUM 254 mg/dL (74-106); POTASSIUM SERUM 4.6 mmol/L (3.5-5.1); SODIUM SERUM 136 mmol/L (136-145)
[2020-05-18 08:30] VITALS: BP 142/82
--- NOTE | 2020-05-18 09:15 | NUR ---
TITRATED HFNC TO 20L 75%. PT TOLERATING WELL. WILL CONT.TO MONITOR
[2020-05-18 09:57] LABS: C REACTIVE PROTEIN < 0.2 mg/dL (<=0.9)
--- NOTE | 2020-05-18 12:00 | NUR ---
PATIENT RESTING IN BED IN PRONE POSITION, RESPIRATIONS EVEN AND UL ON 20L HIGH-FLOW AND FIO2 75%. DENIES PAIN AND DISCOMFORT. BED IN LOWEST POSITION, CALL LIGHT IN REACH, SAFETY MEASURES IN PLACE.
[2020-05-18 12:11] LABS: PLATELET COUNT 147 x10^3mcL (130-400)
[2020-05-18 12:15] VITALS: BP 131/75
[2020-05-18 12:15] LABS: BASOPHIL % 0 % (0-2); RED CELL DISTRIBUTION WIDTH 14.8 % (11.5-14.5)
--- NOTE | 2020-05-18 15:28 | NUR ---
PATIENT IN PRONE POSITION IN BED. DENIES PAIN AND DISCOMFORT. RESPIRATIONS EVEN AND UL ON 20L HIGH-FLOW AND 75% FIO2. BED IN LOWEST POSITION, CALL LIGHT IN REACH, SAFETY MEASURES IN PLACE. WILL CONTINUE TO MONITOR.
[2020-05-18 16:45] VITALS: BP 149/86
--- NOTE | 2020-05-18 18:51 | NUR ---
PATIENT RESTING IN BED, DENIES PAIN AND DISCOMFORT. RESPIRATIONS EVEN AND UL ON 20L HIGH-FLOW AND 75% FIO2. NO ACUTE CHANGES NOTED THROUGHOUT SHIFT. BED IN LOWEST POSITION, CALL LIGHT IN REACH, SAFETY MEASURES IN PLACE. WILL CONT TO MONITOR AND ENDORSE TO REAL TIME OPERATOR NURSE.
--- NOTE | 2020-05-18 19:30 | NUR ---
PT RECIEVED FROM DAY NUIRSE. PT RESTING IN BED AT THIS TIME. DENIES PAIN OR DISCOMFORT. PT A/OX4, CALM AND COOPERATIVE. PT BREATHING E/U ON 20L HF, 75% FIO2. ABD SOFT AND FLAT, DENIES PAIN TO PALPATION. PT AMBULATORY AT BASELINE. IV TO LFA, CDI. BED AT LOWEST POSITION. CALL LIGHT WITHIN REACH. WILL CONTINUE TO MONITOR.
[2020-05-18 20:40] VITALS: BP 124/69
--- NOTE | 2020-05-19 | NUR ---
PT RESTING IN BED AT THIS TIME. DENIES PAIN OR DISCOMFORT. PT BREATHING E/U ON 20L HF 75% FIO2. DENIES SOB AT THIS TIME. WILL CONTINUE TO MONITOR.
[2020-05-19 05:10] VITALS: BP 117/65
[2020-05-19 07:43] LABS: C REACTIVE PROTEIN 0.6 mg/dL (<=0.9); CALCIUM 8.2 mg/dL (8.5-10.1); CARBON DIOXIDE 30.3 mmol/L (21-32); CHLORIDE SERUM 100 mmol/L (98-107); CREATININE SERUM 0.8 mg/dL (0.7-1.3); GFR1 > 60 mL/min; GLUCOSE SERUM 257 mg/dL (74-106); POTASSIUM SERUM 4.1 mmol/L (3.5-5.1); SODIUM SERUM 135 mmol/L (136-145)
[2020-05-19 07:55] LABS: BASOPHIL % 0 % (0-2); PLATELET COUNT 155 x10^3mcL (130-400); RED CELL DISTRIBUTION WIDTH 14.8 % (11.5-14.5)
--- NOTE | 2020-05-19 07:55 | NUR ---
RECEIVED PATIENT. PATIENT IS LAYING DOWN PRONE POSITION PER MD ORDER. SATS GOOD AT THIS TIME 97%. PATIENT STATED FEELING BETTER TODAY, NO PAIN OR OTHER COMPLAINTS FOR NOW. ALL NEEDS MET, WILL CONTINUE MONITORING.
[2020-05-19 08:14] VITALS: BP 142/80
--- NOTE | 2020-05-19 11:44 | NUR ---
BG 378 WILL GIVE INSULIN FOR COVERAGE
[2020-05-19 12:16] VITALS: BP 120/63
--- NOTE | 2020-05-19 13:20 | NUR ---
PATIENT SITTING ON SIDE OF BED HAVING LUNCH. VITAL SIGNS STABLE, CHEST RISING SYMMETRICALLY. NO PAIN AND/OR DISCOMFORT COMPLAINS. PATIENT 95% ON HF 20L FIO2 75%. HAD A BM TODAY. ALL NEEDS ME AT THIS TIME.
[2020-05-19 16:37] VITALS: BP 133/77
--- NOTE | 2020-05-19 17:55 | NUR ---
PATIENT RESTING IN BED, VITAL SIGNS STABLE. PATIENT HAS BEEN CONSISTENT WITH LAYING PRONE POSITION WHEN HE IS NOT SITTING UP OR EATING. NO SOB, NO RESPIRATORY DISTRESS NOTED OR COMPLAINTS. NO PAIN AT THIS TIME. WILL CONTINUE MONITORING PATIENT.
--- NOTE | 2020-05-19 21:54 | NUR ---
Awake and verbally responsive. No respiratory distress noted. On Hiflow 15L 75% Fi02. Denies pain. Denies n/v. All due meds given. Insulin given as ordered. Bedtime snack requested and given. Will cont.to monitor. Call light within reach.
[2020-05-19 22:04] VITALS: BP 135/75
--- NOTE | 2020-05-20 04:11 | NUR ---
Afebrile. No significant change in condition noted. Remained on Hiflow 15L 75%. Cont.on IV solumedrol. Cont.to monitor lab values. In no apparent distress.
[2020-05-20 06:39] VITALS: BP 124/68
--- NOTE | 2020-05-20 07:15 | NUR ---
RECEIVED REPORT FROM SERVICE CENTER REPRESENTATIVE RN. IN BED AWAKE, ALERT, ABLE TO MAKE NEEDS KNOWN. PT ON DROPLET PRECAUTION FOR COVID19, ON HIFLOW 15L, 75%FIO2 WITH 96%02SAT NO ACUTE RESPIRATORY DISTRESS. DENIES PAIN OR DISCOMFORT AT THIS TIME. ON TELE 6, DENIES CHEST PAIN/PRESSURE. IV SITE TO LFA SALINE LOCK. BED IN LOWEST POSITION. CALL LIGHT WITHIN REACH. WILL CONTINUE TO MONITOR.
[2020-05-20 07:22] LABS: PLATELET COUNT 161 x10^3mcL (130-400)
[2020-05-20 07:34] LABS: CALCIUM 7.9 mg/dL (8.5-10.1); CARBON DIOXIDE 32.3 mmol/L (21-32); CHLORIDE SERUM 101 mmol/L (98-107); CREATININE SERUM 0.6 mg/dL (0.7-1.3); GFR1 > 60 mL/min; GLUCOSE SERUM 223 mg/dL (74-106); POTASSIUM SERUM 4.4 mmol/L (3.5-5.1); SODIUM SERUM 136 mmol/L (136-145)
[2020-05-20 07:45] LABS: C REACTIVE PROTEIN 0.2 mg/dL (<=0.9)
[2020-05-20 08:00] VITALS: BP 141/75
--- NOTE | 2020-05-20 09:05 | NUR ---
PT ON 15L 75% HFNC. TITRATED TO 9L OYXMIZER. PT TOLERATING WELL. NO RESP DISTRESS NOTED. SPO2:95%. WILL CONT.TO MONITOR
[2020-05-20 09:39] LABS: BASOPHIL % 0 % (0-2); RED CELL DISTRIBUTION WIDTH 15.1 % (11.5-14.5)
[2020-05-20 11:59] VITALS: BP 128/77
--- NOTE | 2020-05-20 14:20 | NUR ---
PT ON 9L OXYMIZER. TITRATED O2 TO 5L OXYMIZER. SPO2:95%. NO RESP DISTRESS NOTED. WILL CONT.TO MONITOR
--- NOTE | 2020-05-20 15:50 | NUR ---
Follow-up Nutrition Assessment: 224B ALEC ROSADO 59M HR Dx: fever, cough x 10days, COVID+, PNA, Hypoxia PMHx: HTN, DM PSHx: none noted Labs: (05/19) WBC 12.8H, (05/20) Cr 0.6L, BG 223H, POC BG 216H (A1C 8.8H on 05/10), CRP WNL *no other updated labs (05/15) WBC 11.8H, BUN 24H, BG 251H, POC BG 258H, Calcium 8.1L, albumin 2.1L, (05/10) A1C 8.8H, Ferritin 327.2H, CRP 3.2H, Triglycerides 165H, HDL 22LMeds: Diet: Flonase, Colace, Norvasc, Lovenox, Humulin, Solu-medrol, Lantus PO Intake: 50-100% x 13 meals with average PO intake of 92% Wt: 91.881kg/202lbs BMI: 30.8kg/m2 Edema: none noted Last BM: 05/19 Skin: Ecchymosis to BLE Raymon: [address] (05/15), Per progress note (05/15) pt was transferred from ICU to the floor and noted to be on 15L oxymizer, received plasma therapy and Remdesevir. Pt was in isolation and was not able to respond to RD's call. Per pt's primary RN, pt did not exhibit any signs of chewing/swallowing difficulty or GI distress. Pt's PO intake had improved since being transferred out of ICU. RD Note (05/20/2020): Per progress note (05/19) Pt was on 15L high flow and received plasma therapy and remdesivir. Pt's PO intake had improved after transferring out of ICU. Since last visit, pt's average PO intake was 92%. Per pt's RN, pt was tolerating diet with good appetite and no GI distress. Pt's last BM was yesterday. Estimated Nutritional Needs Based on adjusted body weight (75kg) Energy: 7717-7723 kcal/day (30-35 kcal/kg for viral infection) Protein: 90-112 g/day (1.2-1.5 g/kg for viral infection) Fluid: 8330-5397 mL/day (1 mL/kcal) Nutrition Diagnosis: 1. Increased energy and protein needs r/t viral infection a/e/b pt was COVID +. (ongoing) 2. Impaired nutrition utilization r/t endocrine dysfunction a/e/b BG 223H on 05/15 and A1C 8.8 on 05/10. (modified, ongoing) Intervention 1. Continue with CCHO as tolerate 2. Recommend Glucerna BID to meet high kcal demand. It will provide additional 440kcal and 20g protein. Monitor/Evaluate Goal: PO intake at least 75% of estimated needs Monitor: PO intake, Labs, GI function, ONS intake F/U in 3-5 days as moderate risk 05/18-
--- NOTE | 2020-05-20 15:50 | NUR ---
1. Continue with CCHO as tolerate 2. Recommend Glucerna BID to meet high kcal demand. It will provide additional 440kcal and 20g protein.
[2020-05-20 16:15] VITALS: BP 119/66
--- NOTE | 2020-05-20 16:50 | NUR ---
PT ON 5L OXYMIZER. TITRATED O2 TO 3L NC. BUBBLE HUMIDIFIER ADDED. SPO2:96%. NO ACUTE RESP DISTRESS NOTED. WILL CONT.TO MONITOR
--- NOTE | 2020-05-20 18:10 | NUR ---
PT IN BED AWAKE, ALERT, ABLE TO VERBALIZE NEEDS. INITIALLY ON HIFLOW, NOW TITRATED TO 3LPM VIA NC KULDIP 96%SAT, DENIES SOB. COMPLIANT WITH PRONING KULDIP. ON TELE 6 NSR. DENIES PAIN OR DISCOMFORT AT THIS TIME. IV SITE TO LFA SALINE LOCK. BED IN LOWEST POSITION. ALL NEEDS MET. CALL LIGHT YASHHTIN REACH. WILL ENDORSE ADDITIONAL CARE TO INCOMING RN.
[2020-05-20 21:03] VITALS: BP 128/73
--- NOTE | 2020-05-20 21:25 | NUR ---
Awake and verbally responsive. No respiratory distress noted on 02 3LPM via n/c. saturation 93%. Denies SOB. Denies pain. Denies n/v. Will cont.to monitor. All due meds taken. Call light within reach.
--- NOTE | 2020-05-21 04:05 | NUR ---
Afebrile. No significant change in condition noted. Remained on 02 3lpm via n/c. Droplet/contact isolation, proper use of PPE and good hand hygiene observed.
[2020-05-21 06:07] VITALS: BP 128/68
--- NOTE | 2020-05-21 07:15 | NUR ---
RECEIVED REPORT FROM COTTON ACREAGE MEASURER RN. IN BED AWAKE, ALERT, ABLE TO MAKE NEEDS KNOWN. PT ON DROPLET PRECAUTION FOR COVID19, ON 3LPM VIA NC WITH 96%02SAT NO ACUTE RESPIRATORY DISTRESS. DENIES PAIN OR DISCOMFORT AT THIS TIME. ON TELE 6, DENIES CHEST PAIN/PRESSURE. IV SITE TO LFA SALINE LOCK. BED IN LOWEST POSITION. CALL LIGHT WITHIN REACH. WILL CONTINUE TO MONITOR.
[2020-05-21 07:16] LABS: CALCIUM 8.6 mg/dL (8.5-10.1); CARBON DIOXIDE 32.9 mmol/L (21-32); CHLORIDE SERUM 100 mmol/L (98-107); CREATININE SERUM 0.8 mg/dL (0.7-1.3); GFR1 > 60 mL/min; GLUCOSE SERUM 239 mg/dL (74-106); POTASSIUM SERUM 4.6 mmol/L (3.5-5.1); SODIUM SERUM 135 mmol/L (136-145)
[2020-05-21 07:23] LABS: PLATELET COUNT 152 x10^3mcL (130-400)
[2020-05-21 08:31] LABS: BASOPHIL % 0 % (0-2); RED CELL DISTRIBUTION WIDTH 14.7 % (11.5-14.5)
[2020-05-21 08:45] VITALS: BP 137/85
[2020-05-21 12:07] VITALS: BP 120/64
--- NOTE | 2020-05-21 12:10 | NUR ---
PT IN BED AWAKE, ALERT, ABLE TO VERBALIZE NEEDS. DENIES PAIN OR DISCOMFORT AT THIS TIME. DENIES SOB. CONTINUE WITH 3LPM VIA NC 95%SAT. ENCOURAGE PRONING, PT ABLE TO DEMONSTRATE UNDERSTANDING. CALL LIGHT WITHIN REACH. WILL CONTINUE TO MONITOR.
[2020-05-21 16:29] VITALS: BP 105/60
--- NOTE | 2020-05-21 18:39 | NUR ---
PT IN BED AWAKE AND ALERT, TALKING ON THE PHONE. ON 3LPM VIA NC KULDIP 96%SAT, DENIES SOB. COMPLIANT WITH PRONING KULDIP. ON TELE 6 NSR. DENIES PAIN OR DISCOMFORT AT THIS TIME. IV SITE TO LFA SALINE LOCK. BED IN LOWEST POSITION. ALL NEEDS MET. CALL LIGHT WIHTIN REACH. WILL ENDORSE ADDITIONAL CARE TO INCOMING RN.
[2020-05-21 21:44] VITALS: BP 147/80
--- NOTE | 2020-05-21 22:40 | NUR ---
RECEIVED PT FROM DAYSNYFT NURSE. PT IS AAOX4, DENIES HEADACHE/NAUSEA/DIZZINESS, WOLOF SPEAKING. PT IS TELE # 6, NSR, DENIES CHEST PAIN. PULSES ARE EQUAL BILATERALLY, NO EDMEA NOTED, ON LOVENOX SQ. PT HAS DIMINISHED BILATERAL LUNG SOUNDS, ON 3L NC, DENIES SOB. ABDOMEN IS SOFT AND ROUND, NO PAIN UPON PALPATION. NORMOACTIVE X4 QUADRANTS, LAST BM 05/20. PT VOIDS FREELY, URINAL AT BEDSIDE. PT IS AMBULATORY, MILD GENERALIZED WEAKNESS. PT HAS ECCHYMOSIS TO RUE AND BLE DISCOLORATION, OBEY. PT HAS IV TO LFA, INTACT, NO REDNESS OR SWELLING NOTED. PT IS CALM AND COOPERATIVE. ALL SAFETY MEASURES IN PLACE. BED IN LOWEST POSITION, CALL LIGHT WITHIN REACH. WILL CONTINUJ ETO MONITOR.
--- NOTE | 2020-05-22 01:22 | NUR ---
PATIENT RESTING INTERMITTENTLY WITH EYES CLOSED. PATIENT IS ON 3L NC, DENIES SOB. NO ACUTE DISTRESS OBSERVED AT THIS TIME. ALL SAFETY MEASURES IN PLACE. BED IN LOWEST POSITION, CALL LIGHT WITHIN REACH. WILL CONTINUE TO MONITOR.
--- NOTE | 2020-05-22 06:07 | NUR ---
PATIENT RESTED INTERMITTENTLY WITH EYES CLOSED. PATIENT IS AAOX4, [place]TH [place]ORE[place] SPEAKING, DENIES HEADACHE/NAUSEA/DIZZINESS. PT IS TELE 6, NSR, DENIES CHEST PAIN. PATIENT DENIES SOB AT THIS TIME, ON 3L NC. NO ACUTE CHANGES IN PATIENT'S STATUS OVER NIGHT. ALL SAFETY MEASURES IN PLACE. BED IN LOWEST POSITION, CALL LIGHT WITHIN REACH. WILL CONTINUE TO MONITOR AND ENDORSE TO DAYSHIFT NURSE AT APPROPRIATE TIME.
[2020-05-22 06:21] VITALS: BP 120/65
--- NOTE | 2020-05-22 07:13 | NUR ---
ENDORSED CARE TO DAYSHIFT NURSE. ALL QUESTIONS/CONCERNS ADDRESSED.
[2020-05-22 08:26] VITALS: BP 120/65
[2020-05-22 08:51] VITALS: BP 131/65
[2020-05-22] MEDS ORDERED: GLUCOPHAGE500 MG PO (09:48)
[2020-05-22] MEDS ORDERED: ACCU-CHEK1 EAC2 MC (09:49)
[2020-05-22] MEDS ORDERED: PRE20 PO (09:49)
[2020-05-22] MEDS ORDERED: VENTOLIN H0.09 MG/A1 INH (09:50)
--- NOTE | 2020-05-22 11:21 | NUR ---
PATIENT DISCHARGED HOME VIA WHEELCHAIR AND OXYGEN. BROUGHT PORTABLE OXGYEN TANK FOR RIDE HOME. PATIENT AND STATE THEY ARE FAMILIAR WITH OXGYEN. INFORMED PATIENT TO GO STRAIGHT HOME FROM HOSPITAL. ALL DISHCARGE INSTRUCTIONS REVIEWED WITH PATIENT WITH PATIENT VERBALIZING UNDERSTANDING. ALL BELONGINGS REVIEWED WITH PATIENT. NO SHORTNESS OF BREATH REPORTED OR WITNESSED.
== END 2020-05-22 11:12 | disposition home or self-care (01) | DRG 871 ==
LOC: ED 11:39 → IC 13:18 → DU 05-12 18:04
PROVIDERS: Family Medicine; Student in an Organized Health Care Education/Training Program; ADMIT Internal Medicine; ATTEND Internal Medicine
PROC: XW13325 Transfusion of Convalescent Plasma (Nonautologous) into Peripheral Vein, Percutaneous Approach, New Technology Group 5 (ICD-10-PCS; principal; 2020-05-11)
PROC: 5A09357 Assistance with Respiratory Ventilation, Less than 24 Consecutive Hours, Continuous Positive Airway Pressure (ICD-10-PCS; 2020-05-11)
PROC: XW033E5 Introduction of Remdesivir Anti-infective into Peripheral Vein, Percutaneous Approach, New Technology Group 5 (ICD-10-PCS; 2020-05-12)
DX: A41.9 Sepsis, unspecified organism (principal); U07.1 COVID-19; E43 Unspecified severe protein-calorie malnutrition; J12.89 Other viral pneumonia; J96.01 Acute respiratory failure with hypoxia; I10 Essential (primary) hypertension; E11.65 Type 2 diabetes mellitus with hyperglycemia; Z68.31 Body mass index [BMI] 31.0-31.9, adult
CPT/HCPCS: 36600; 82962; 83880; 85378; G0378; J0456; J1100; J1650; J1815; J2920; J3535; J7050; U0003